=== PATIENT | male | born 1970 | race Caucasian/White ===

== ENCOUNTER 2017-02-21 10:34 | Emergency (ER) | payer BC ==
[2017-02-21 10:47] VITALS: BP 140/99
--- NOTE | 2017-02-21 10:50 | EDM.PDOC ---
ED HPI GENERAL MEDICAL PROBLEM - General Chief Complaint: Abdominal Pain Stated Complaint: ABDOMINAL PAIN Time Seen by Provider: 02/21/17 10:49 - History of Present Illness INITIAL COMMENTS - FREE TEXT/NARRATIVE: 46-year-old male presents emergency room with abdominal pain. This pain started on the of this last month nearly going on for 2 weeks. Pain is progressively been getting worse. Patient was seen in the clinic Friday this last week had lab work and x-rays done that were unrevealing. He describes the pain as a generalized abdominal pain doesn't seem to be worse any particular place. Patient said variable loose stools over the last week semi- formed no more than one daily denies constipation. His appetite and diminished no vomiting. No black or tarry stools. Patient's significant history of type 2 diabetes and he has had an appendectomy in the past. Abdominal Pain Score (Numeric/FACES): 7 - Related Data Allergies Allergy/AdvReac Type Severity Reaction Status Date / Time acetaminophen Allergy Hives Verified 05/14/16 17:23 [From Lorcet (hydrocodone)] hydrocodone bitartrate Allergy Hives Verified 02/21/17 10:47 [From Lorcet (hydrocodone)] Home Meds: Home Meds Amitriptyline [Elavil] 50 mg PO BEDTIME 08/27/14 [History] Lisinopril 2.5 mg PO DAILY 08/27/14 [History] metFORMIN [Glucophage XR] 750 mg PO BID 08/27/14 [History] rOPINIRole [Requip] 3 mg PO BEDTIME 08/27/14 [History] Propranolol [Inderal] 10 mg PO ACDINNER 08/29/15 [History] Topiramate [Topamax] 50 mg PO DAILY 05/14/16 [History] Omeprazole Magnesium [Prilosec Otc] 20 mg PO DAILY 02/21/17 [History] Sucralfate [Carafate] 1 gm PO QID 02/21/17 [History] Vortioxetine Hydrobromide [Trintellix] 10 mg PO DAILY 02/21/17 [History] Past Medical History Cardiovascular History: Reports: High Cholesterol, Hypertension Gastrointestinal History: Reports: GERD Genitourinary History: Reports: Renal Calculus Neurological History: Reports: Migraines Psychiatric History: Reports: Depression Endocrine/Metabolic History: Reports: Diabetes, Type I - Infectious Disease History Infectious Disease History: Reports: Chicken Pox - Past Surgical History Musculoskeletal Surgical History: Reports: Other (See Below) Social & Family History - Tobacco Use Smoking Status *Q: Never Smoker Second Hand Smoke Exposure: No - Alcohol Use Days Per Week of Alcohol Use: 1 Number of Drinks Per Day: 1 Total Drinks Per Week: 1 - Recreational Drug Use Recreational Drug Use: No ED ROS GENERAL - Review of Systems Review Of Systems: See Below Constitutional: Reports: No Symptoms. Denies: Fever, Chills Respiratory: Reports: No Symptoms Cardiovascular: Reports: No Symptoms Endocrine: Reports: No Symptoms GI/Abdominal: Reports: Abdominal Pain, Nausea. Denies: Constipation, Diarrhea, Vomiting : Reports: No Symptoms Neurological: Reports: No Symptoms ED EXAM, GI/ABD - Physical Exam Exam: See Below Exam Limited By: No Limitations General Appearance: Alert, No Apparent Distress Neck: Normal Inspection. No: Lymphadenopathy (L), Lymphadenopathy (R) Respiratory/Chest: No Respiratory Distress, Lungs Clear, Normal Breath Sounds Cardiovascular: Regular Rate, Rhythm, No Edema, No Murmur GI/Abdominal: Normal Bowel Sounds, Soft, Other (He has mild diffuse tenderness throughout the abdomen seems to be worse in the epigastric and to a lesser degree in the right upper quadrant no rebound or guarding.) Back Exam: Normal Inspection. No: CVA Tenderness (L), CVA Tenderness (R) Extremities: Normal Inspection, No Pedal Edema Neurological: Alert, Oriented Course - Vital Signs Last Recorded V/S: Last Vital Signs Temp 36.9 C 02/21/17 10:43 Pulse 62 02/21/17 10:43 Resp 20 02/21/17 10:43 BP 140/99 H 02/21/17 10:43 Pulse Ox 99 02/21/17 10:43 - Orders/Labs/Meds Orders: Active Orders 24 hr Category Date Time Status Abdomen 2V AP Flat Upright [CR] Stat Exams 02/21/17 11:53 Taken Labs: Laboratory Tests 02/21/17 02/21/17 Range/Units 10:50 10:50 WBC 7.34 (4.23-9.07) K/mm3 RBC 4.77 (4.63-6.08) M/mm3 Hgb 15.2 (13.7-17.5) gm/L Hct 43.6 (40.1-51.0) % MCV 91.4 (79.0-92.2) fl MCH 31.9 (25.7-32.2) pg MCHC 34.9 (32.2-35.5) g/dl RDW Std Deviation 40.7 (35.1-43.9) fL Plt Count 379 H (163-337) K/mm3 MPV 9.8 (9.4-12.3) fl Neutrophils % (Manual) 40 (40-60) % Band Neutrophils % 0 (0-10) % Lymphocytes % (Manual) 54 H (20-40) % Atypical Lymphs % 0 % Monocytes % (Manual) 4 (2-10) % Eosinophils % (Manual) 2 (0.8-7.0) % Basophils % (Manual) 0 L (0.2-1.2) Platelet Estimate Adequate RBC Morph Comment Normal Sodium 139 (136-145) mEq/L Potassium 4.0 (3.5-5.1) mEq/L Chloride 104 (98-107) mEq/L Carbon Dioxide 23 (21-32) mEq/L Anion Gap 16.0 H (5-15) BUN 14 (7-18) mg/dL Creatinine 1.2 (0.7-1.3) mg/dL Est Cr Clr Drug Dosing TNP Estimated GFR (MDRD) > 60 (>60) mL/min BUN/Creatinine Ratio 11.7 L (14-18) Glucose 154 H (74-106) mg/dL Calcium 9.2 (8.5-10.1) mg/dL Total Bilirubin 0.6 (0.2-1.0) mg/dL AST 13 L (15-37) U/L ALT 17 (16-63) U/L Alkaline Phosphatase 70 (46-116) U/L Total Protein 7.0 (6.4-8.2) g/dl Albumin 4.0 (3.4-5.0) g/dl Globulin 3.0 gm/dL Albumin/Globulin Ratio 1.3 (1-2) Lipase 149 (73-393) U/L Meds: Medications Discontinued Medications Generic Name Dose Route Start Last Admin Trade Name Freq PRN Reason Stop Dose Admin Al Hydroxide/Mg Hydroxide 30 0 ml 02/21/17 12:12 02/21/17 12:20 ml/ Lidocaine HCl 15 ml PO 02/21/17 12:13 45 ml ONETIME ONE Administration Sucralfate 1 gm 02/21/17 13:07 02/21/17 13:16 Carafate PO 02/21/17 13:08 1 gm ONETIME ONE Administration - Re-Assessments/Exams Free Text/Narrative Re-Assessment/Exam: 02/21/17 12:40 Reviewed his labs and x-ray done in the clinic earlier this week they were unrevealing new labs ordered will check a two-view abdomen. Recheck his abdomen exam this is unchanged we'll try a GI cocktail. 02/21/17 13:06 Patient had some improvement with the GI cocktail not complete resolution of his discomfort. 02/21/17 14:04 Further improvement with Carafate as it turns out his eye she started on omeprazole 20 mg twice a day for 5 days then once daily and Carafate however he' s not been taking the Carafate more than twice daily. With improvement we have with the GI cocktail the Carafate I am going to continue this current therapy however I discussed with the patient and the that if he is not getting improvement by early next week a gallbladder ultrasound should be pursued. Departure - Departure Time of Disposition: 14:19 Disposition: Home, Self-Care 01 Clinical Impression: Dyspepsia - Discharge Information Forms: ED Department Discharge Additional Instructions: Return to emergency room if any questions or problems. Followup in the clinic on Friday. If this is not improving pursue a gallbladder ultrasound. Continue the omeprazole twice daily and the Carafate 4 times daily just before breakfast lunch and supper and at bedtime take your other medications at least one hour before the Carafate and at least 2 hours after Carafate. - My Orders Last 24 Hours: My Active Orders 02/21/17 11:53 Abdomen 2V AP Flat Upright [CR] Stat - Assessment/Plan Last 24 Hours: My Active Orders 02/21/17 11:53 Abdomen 2V AP Flat Upright [CR] Stat
[2017-02-21] MEDS ORDERED: Alum Hydrox/Mag Hydrox/Simeth 30 ML, Lidocaine 2% 15 ML PO ONE ×2 (12:12)
[2017-02-21] MEDS ORDERED: Sucralfate Suspension 1 GM/10 ML Cup PO ONE (13:07)
--- NOTE | 2017-02-24 12:04 | CR ---
Abdomen: Supine and upright views of the abdomen were obtained. Comparison: No previous study. Bowel gas pattern is normal. No abnormal calcifications or soft tissue abnormality is seen. Bony structures are unremarkable. Impression: 1. No abnormality is seen on two-view abdominal x-ray. Diagnostic code #1
== END 2017-02-21 14:34 | disposition home or self-care (01) ==
LOC: JD.ED 10:34
DX: R10.13 Epigastric pain (principal); I10 Essential (primary) hypertension; E78.00 Pure hypercholesterolemia, unspecified; K21.9 Gastro-esophageal reflux disease without esophagitis; G43.909 Migraine, unspecified, not intractable, without status migrainosus; F32.9 Major depressive disorder, single episode, unspecified; E10.9 Type 1 diabetes mellitus without complications; Z79.84 Long term (current) use of oral hypoglycemic drugs; Z79.899 Other long term (current) drug therapy; Z88.6 Allergy status to analgesic agent; Z88.5 Allergy status to narcotic agent
CPT/HCPCS: 36415; 74020; 80053; 83690; 85025; 99284; A9270; 99283

== ENCOUNTER 2018-03-03 10:36 | Emergency (ER) | payer BC ==
[2018-03-03] MEDS ORDERED: Sodium Chloride 0.9% 10 ML Syringe FLUSH PRN (11:15)
[2018-03-03] MEDS ORDERED: LORazepam 2 MG/ML SDV IVPUSH ONE (11:15)
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
[2018-03-03 13:16] VITALS: BP 103/63
== END 2018-03-03 13:00 | disposition home or self-care (01) ==
LOC: JD.ED 10:36
DX: F44.5 Conversion disorder with seizures or convulsions (principal); F32.9 Major depressive disorder, single episode, unspecified; E78.00 Pure hypercholesterolemia, unspecified; I10 Essential (primary) hypertension; K21.9 Gastro-esophageal reflux disease without esophagitis; E10.9 Type 1 diabetes mellitus without complications; Z95.5 Presence of coronary angioplasty implant and graft; Z79.82 Long term (current) use of aspirin; Z79.899 Other long term (current) drug therapy; Z87.891 Personal history of nicotine dependence; Z87.442 Personal history of urinary calculi; Z88.6 Allergy status to analgesic agent; Z79.84 Long term (current) use of oral hypoglycemic drugs
CPT/HCPCS: 36415; 80053; 80306; 81001; 82962; 84443; 85007; 85027; 96374; 99285; G0480; J2060; J7050; 99284

== ENCOUNTER 2019-09-30 21:31 | Emergency (ER) | payer OTHER ==
[2019-09-30 21:40] VITALS: BP 161/110; PULSE 83
[2019-09-30] MEDS ORDERED: Sodium Chloride 0.9% 10 ML Syringe FLUSH PRN (21:54)
[2019-09-30] MEDS ORDERED: diphenhydrAMINE 50 MG/ML SDV IVPUSH ONE (21:54)
[2019-09-30] MEDS ORDERED: Metoclopramide 10 MG/2 ML SDV IVPUSH ONE (21:54)
[2019-09-30] MEDS ORDERED: Ketorolac 30 MG/ML SDV IVPUSH ONE (21:54)
[2019-09-30] MEDS ORDERED: Sodium Chloride 0.9% 1,000 ML IV SCH (22:00)
--- NOTE | 2019-09-30 22:11 | EDM.PDOC ---
<Savanah Singh Navya - Last Filed: 09/30/19 22:49> ED HPI GENERAL MEDICAL PROBLEM - General Chief Complaint: Headache Stated Complaint: MIGRAINE Time Seen by Provider: 09/30/19 21:53 Source of Information: Reports: Patient, Family (), RN Notes Reviewed History Limitations: Reports: No Limitations - History of Present Illness INITIAL COMMENTS - FREE TEXT/NARRATIVE: Is a 49-year-old male who presents to the ED for the evaluation of a headache, he states he has a history of headaches, and this 1 has been present for the past 3 days, he has been trying Tylenol ibuprofen at home, but this not provided much relief. Patient notes that the migraine started like his typical migraine, but now he states that his head pain is all over. He feels like his head wants to blow up. He would rate his pain at a 10 out of 10, he states that he was having some nausea and vomiting with this, he did have 3 episodes of vomitus. He was seeing spots or stars as well, he is not having any sort of blurred vision or double vision. Patient did not get a flu shot this year, however he states he has not had a fever or chills at home. Patient has not had any sort of recent neurology visit, the notes that he has been on Imitrex, Maxalt, Lortab, Fioricet, for headache prophylaxis however all of these have provided adverse side effects. The also notes that the patient recently quit tobacco chew, and he is on a nicotine patch. Head Pain Score (Numeric/FACES): 10 - Related Data Allergies Allergy/AdvReac Type Severity Reaction Status Date / Time acetaminophen Allergy Hives Verified 03/03/18 10:42 [From Lorcet (hydrocodone)] diazepam [From Valium] Allergy Shaking Verified 03/03/18 10:42 hydrocodone bitartrate Allergy Hives Verified 03/03/18 10:42 [From Lorcet (hydrocodone)] Home Meds: Home Meds Amitriptyline [Elavil] 50 mg PO BEDTIME 08/27/14 [History] Lisinopril 5 mg PO DAILY 08/27/14 [History] rOPINIRole [Requip] 3 mg PO BEDTIME 08/27/14 [History] Propranolol [Inderal] 80 mg PO ACDINNER 08/29/15 [History] Topiramate [Topamax] 50 mg PO BID 05/14/16 [History] Aspirin 81 mg PO DAILY 03/03/18 [History] Cholecalciferol (Vitamin D3) [Vitamin D3] 1,000 unit PO DAILY 03/03/18 [History] Cyanocobalamin (Vitamin B12) [Vitamin B12] 1,000 mcg PO DAILY 03/03/18 [History] LORazepam [Ativan] 0.5 mg PO TID PRN #9 tab 03/03/18 [Rx] atorvaSTATin [Lipitor] 10 mg PO BEDTIME 03/03/18 [History] metFORMIN [Glucophage] 850 mg PO BIDMEALS 03/03/18 [History] Ketorolac [Toradol] 10 mg PO Q6H PRN #6 tab 09/30/19 [Rx] Metoclopramide HCl [Reglan] 10 mg PO Q6H PRN #6 tablet 09/30/19 [Rx] PARoxetine HCl [Paxil] 20 mg PO DAILY 09/30/19 [History] Past Medical History HEENT History: Reports: Impaired Vision Cardiovascular History: Reports: High Cholesterol, Hypertension Gastrointestinal History: Reports: GERD Genitourinary History: Reports: Renal Calculus Neurological History: Reports: Migraines Psychiatric History: Reports: Depression Endocrine/Metabolic History: Reports: Diabetes, Type I - Infectious Disease History Infectious Disease History: Reports: Chicken Pox - Past Surgical History HEENT Surgical History: Reports: Tonsillectomy Cardiovascular Surgical History: Reports: Coronary Artery Stent Musculoskeletal Surgical History: Reports: Other (See Below) Other Musculoskeletal Surgeries/Procedures:: ankle surgery Social & Family History - Family History Family Medical History: Noncontributory - Tobacco Use Smoking Status *Q: Former Smoker Used Tobacco, but Quit: Yes Month/Year Tobacco Last Used: August 2019 - Caffeine Use Caffeine Use: Reports: Soda - Recreational Drug Use Recreational Drug Use: No ED ROS GENERAL - Review of Systems Review Of Systems: See Below Constitutional: Denies: Fever, Chills HEENT: Denies: Rhinitis, Vision Change Respiratory: Denies: Shortness of Breath, Cough Cardiovascular: Denies: Chest Pain GI/Abdominal: Reports: Nausea, Vomiting. Denies: Abdominal Pain Neurological: Reports: Headache ( "all over his head"). Denies: Trouble Speaking, Weakness - Physical Exam Exam: See Below Exam Limited By: No Limitations General Appearance: Alert, WD/WN, No Apparent Distress Eye Exam: Bilateral Eye: EOMI, Normal Inspection, PERRL Ears: Normal External Exam Nose: Normal Inspection Throat/Mouth: Normal Inspection, Normal Lips, Normal Teeth, Normal Gums, Normal Oropharynx, Normal Voice, No Airway Compromise Head Exam: Atraumatic, Normocephalic Respiratory/Chest: No Respiratory Distress, Lungs Clear, Normal Breath Sounds, No Accessory Muscle Use, Chest Non-Tender Cardiovascular: Normal Peripheral Pulses, Regular Rate, Rhythm, No Murmur GI/Abdominal: Normal Bowel Sounds, Soft, Non-Tender, No Distention, No Mass Neuro Exam (Abbreviated): Alert, Oriented, Normal Cognition, No Motor/Sensory Deficits Extremities: Normal Inspection, Normal Capillary Refill Psychiatric: Normal Affect, Normal Mood Skin Exam: Warm, Dry, Intact, Normal Color, No Rash Course - Vital Signs Last Recorded V/S: Last Vital Signs Temp 36.4 C 09/30/19 21:37 Pulse 83 09/30/19 21:37 Resp 18 09/30/19 21:37 BP 161/110 H 09/30/19 21:37 Pulse Ox 94 L 09/30/19 21:37 - Orders/Labs/Meds Meds: Medications Discontinued Medications Generic Name Dose Route Start Last Admin Trade Name Cheyenne PRGodfrey Reason Stop Dose Admin Diphenhydramine HCl 25 mg 09/30/19 21:54 09/30/19 22:11 Benadryl IVPUSH 09/30/19 21:55 25 mg ONETIME ONE Administration Hydromorphone HCl 0.5 mg 09/30/19 22:46 09/30/19 22:59 Dilaudid IVPUSH 09/30/19 22:47 0.5 mg ONETIME ONE Administration Sodium Chloride 1,000 mls @ 125 mls/hr 09/30/19 22:00 09/30/19 22:09 Normal Saline IV 125 mls/hr ASDIRECTED REJI Administration Ketorolac Tromethamine 30 mg 09/30/19 21:54 09/30/19 22:11 Toradol IVPUSH 09/30/19 21:55 30 mg ONETIME ONE Administration Metoclopramide HCl 10 mg 09/30/19 21:54 09/30/19 22:11 Reglan IVPUSH 09/30/19 21:55 10 mg ONETIME ONE Administration Sodium Chloride 10 ml 09/30/19 21:54 09/30/19 22:29 Saline Flush FLUSH 10 ml ASDIRECTED PRN Administration Keep Vein Open - Re-Assessments/Exams Free Text/Narrative Re-Assessment/Exam: 09/30/19 22:14 Patient presents to the ED for the evaluation of a headache. An IV will be placed with some IV fluids, 30 mg Toradol, 25 mg Benadryl, and 10 mg Reglan to start for initial management. Patient will be reassessed about 20 minutes after he has been given medication. 09/30/19 22:49 Patient was reassessed at bedside, and states that his headache has not improved after about half hour after he is gotten the medication. I will give him 0.5 mg of Dilaudid for further pain management. Departure - Departure Time of Disposition: 22:50 Disposition: Home, Self-Care 01 Condition: Fair Clinical Impression: Headache Qualifiers: Headache type: tension-type Headache chronicity pattern: acute headache Intractability: not intractable Qualified Code(s): G44.209 - Tension-type headache, unspecified, not intractable - Discharge Information *PRESCRIPTION DRUG MONITORING PROGRAM REVIEWED*: No *COPY OF PRESCRIPTION DRUG MONITORING REPORT IN PATIENT STEVEN: No Prescriptions: Ketorolac [Toradol] 10 mg PO Q6H PRN #6 tab PRN Reason: Severe headache relief Metoclopramide HCl [Reglan] 10 mg PO Q6H PRN #6 tablet PRN Reason: Severe headache relief Instructions: Migraine Headache, [id number] Referrals: Luz Maria Vazquez PA-C [Primary Care Provider] - Forms: ED Department Discharge, ED Return to Work/School Form Additional Instructions: You were evaluated in the ED for a persistent severe headache for the last 3 days. Appears to be migraine like associated nausea vomiting.. You were given a combination of medications and IV fluid for management. This did seem to provide you pretty good relief of your symptoms. Recommend that you go home and rest in a quiet, darkened room. Try also to keep well hydrated. Please return to the ED if your symptoms should change or worsen. Written a prescription for Toradol 10 mg tablet and Reglan 10 mg tablet to be taken one of each at onset of next severe headache and may repeat in 6 hours if necessary for relief of severe headache. Trial of medication to see if it helps you could have it refilled by her primary care physician if it works. Sepsis Event Note - Evaluation Sepsis Screening Result: No Definite Risk - Focused Exam Date Exam was Performed: 09/30/19 Time Exam was Performed: 22:49 <Conner Benson - Last Filed: 10/04/19 07:17> Course - Re-Assessments/Exams Free Text/Narrative Re-Assessment/Exam: 09/30/19 23:46 she reports headache is down to a 4 out of 10 and it was a 10 out of 10. He feels that he is good enough to go home to sleep. He tolerated prescription for Toradol 10 mg tablet and Reglan 10 mg tablet 6 of each to be taken one of each at the same time at onset of next a bad headache in the hopes of bringing it under control. To excuse him from the workplace for this week as he's missed the entire week due to the severity of the bad headache. Departure - Departure Time of Disposition: 23:46 Sepsis Event Note - Focused Exam Date Exam was Performed: 10/04/19 Time Exam was Performed: 07:17
[2019-09-30] MEDS ORDERED: HYDROmorphone 0.5 MG/0.5 ML Syringe IVPUSH ONE (22:46)
== END 2019-10-01 00:04 | disposition home or self-care (01) ==
LOC: JD.ED 21:31
DX: G44.209 Tension-type headache, unspecified, not intractable (principal); I10 Essential (primary) hypertension; E78.00 Pure hypercholesterolemia, unspecified; E10.9 Type 1 diabetes mellitus without complications; F32.9 Major depressive disorder, single episode, unspecified; Z88.6 Allergy status to analgesic agent; Z88.8 Allergy status to other drugs, medicaments and biological substances; Z88.5 Allergy status to narcotic agent; Z79.84 Long term (current) use of oral hypoglycemic drugs; Z79.82 Long term (current) use of aspirin; Z79.899 Other long term (current) drug therapy; Z87.891 Personal history of nicotine dependence
CPT/HCPCS: J1170; J1200; J1885; J2765; J7030; 96361; 96374; 96375; 99283; 99284-25

== ENCOUNTER 2019-10-05 23:48 | Emergency (ER) | payer BC, OTHER ==
[2019-10-05 23:59] VITALS: BP 167/111; PULSE 82
[2019-10-06] MEDS ORDERED: Sodium Chloride 0.9% 10 ML Syringe FLUSH PRN (00:21)
[2019-10-06] MEDS ORDERED: HYDROmorphone 1 MG/ML Syringe IVPUSH ONE (00:22)
[2019-10-06] MEDS ORDERED: Sodium Chloride 0.9% 1,000 ML IV SCH (00:30)
--- NOTE | 2019-10-06 00:58 | EDM.PDOC ---
ED HPI GENERAL MEDICAL PROBLEM - General Chief Complaint: Neuro Symptoms/Deficits Stated Complaint: SHAKING/HOLDING BREATH Time Seen by Provider: 10/05/19 23:55 Source of Information: Reports: Patient, Family History Limitations: Reports: No Limitations - History of Present Illness INITIAL COMMENTS - FREE TEXT/NARRATIVE: The patient presents with his and daughter for a headache and abdominal pain this has been going on for about a week. He was seen here 5 days ago for a headache and was treated. He still has a headache and abdominal pain. He went to bed at 5pm. He then called his at 10pm and said he was having a seizure. He was shaking but not having a seizure. He has no fever or chills. He does not have a cough. He has generalized weakness. He has no chest pain or shortness of breath. He has no nausea or vomiting. He did have a conversion reaction about 2 years ago when his dog . His gave him some ativan he had from that and it may have helped some. He is confused and does not know where he is. He did have a DUI in May and has quit drinking since then. Onset: Gradual Duration: Week(s): Location: Reports: Head, Abdomen Quality: Reports: Sharp Severity: Moderate Improves with: Reports: None Worsens with: Reports: None Associated Symptoms: Reports: Headaches. 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 (see below) Other Treatments TERRITORY SALES MANAGER: 0.5mg PO ativan Abdomen Pain Score (Numeric/FACES): 8 Head Pain Score (Numeric/FACES): 8 - Related Data Allergies Allergy/AdvReac Type Severity Reaction Status Date / Time acetaminophen Allergy Hives Verified 10/06/19 00:02 [From Lorcet (hydrocodone)] diazepam [From Valium] Allergy Shaking Verified 10/06/19 00:02 hydrocodone bitartrate Allergy Hives Verified 10/06/19 00:02 [From Lorcet (hydrocodone)] Home Meds: Home Meds Amitriptyline [Elavil] 50 mg PO BEDTIME 08/27/14 [History] Lisinopril 5 mg PO DAILY 08/27/14 [History] rOPINIRole [Requip] 3 mg PO BEDTIME 08/27/14 [History] Propranolol [Inderal] 80 mg PO ACDINNER 08/29/15 [History] Topiramate [Topamax] 50 mg PO BID 05/14/16 [History] Aspirin 81 mg PO DAILY 03/03/18 [History] Cholecalciferol (Vitamin D3) [Vitamin D3] 1,000 unit PO DAILY 03/03/18 [History] Cyanocobalamin (Vitamin B12) [Vitamin B12] 1,000 mcg PO DAILY 03/03/18 [History] LORazepam [Ativan] 0.5 mg PO TID PRN #9 tab 03/03/18 [Rx] atorvaSTATin [Lipitor] 10 mg PO BEDTIME 03/03/18 [History] metFORMIN [Glucophage] 850 mg PO BIDMEALS 03/03/18 [History] Ketorolac [Toradol] 10 mg PO Q6H PRN #6 tab 09/30/19 [Rx] Metoclopramide HCl [Reglan] 10 mg PO Q6H PRN #6 tablet 09/30/19 [Rx] PARoxetine HCl [Paxil] 20 mg PO DAILY 09/30/19 [History] Omeprazole Magnesium [Prilosec Otc] 20 mg PO DAILY #15 tablet. 10/06/19 [Rx] Past Medical History HEENT History: Reports: Impaired Vision Cardiovascular History: Reports: High Cholesterol, Hypertension Gastrointestinal History: Reports: GERD Genitourinary History: Reports: Renal Calculus Neurological History: Reports: Migraines Psychiatric History: Reports: Depression Endocrine/Metabolic History: Reports: Diabetes, Type I - Infectious Disease History Infectious Disease History: Reports: Chicken Pox - Past Surgical History HEENT Surgical History: Reports: Tonsillectomy Cardiovascular Surgical History: Reports: Coronary Artery Stent Musculoskeletal Surgical History: Reports: Other (See Below) Other Musculoskeletal Surgeries/Procedures:: ankle surgery Social & Family History - Family History Family Medical History: Noncontributory - Tobacco Use Smoking Status *Q: Never Smoker Second Hand Smoke Exposure: No - Caffeine Use Caffeine Use: Reports: None - Recreational Drug Use Recreational Drug Use: No ED ROS GENERAL - Review of Systems Review Of Systems: See Below Constitutional: Reports: Weakness, Fatigue. Denies: Fever, Chills HEENT: Reports: No Symptoms Respiratory: Reports: No Symptoms Cardiovascular: Reports: No Symptoms Endocrine: Reports: No Symptoms GI/Abdominal: Reports: Abdominal Pain. Denies: Diarrhea, Nausea, Vomiting : Reports: No Symptoms Musculoskeletal: Reports: No Symptoms Neurological: Reports: Headache, Weakness (generalized) ED EXAM, NEURO - Physical Exam Exam: See Below Exam Limited By: Altered Mental Status General Appearance: No Apparent Distress, Other (sleepy) Ears: Normal External Exam Nose: Normal Inspection Head Exam: Atraumatic, Normocephalic Neck: Normal Inspection Respiratory/Chest: No Respiratory Distress, Lungs Clear, Normal Breath Sounds Cardiovascular: Regular Rate, Rhythm, No Edema, No Murmur GI/Abdominal: Soft, Non-Tender, No Organomegaly, No Mass Neurological: Other (Sleepy but he will wake up and answer questions. He is confused to where he is and who he is.) Course - Vital Signs Last Recorded V/S: Last Vital Signs Temp 97.8 F 10/05/19 23:55 Pulse 82 10/05/19 23:55 Resp 19 10/05/19 23:55 BP 167/111 H 10/05/19 23:55 Pulse Ox 94 L 10/05/19 23:55 - Orders/Labs/Meds Orders: Active Orders 24 hr Category Date Time Status Cardiac Monitoring [RC] . DIRECTED Care 10/06/19 00:21 Active Peripheral IV Care [RC] . DIRECTED Care 10/06/19 00:21 Active Head wo Cont [CT] Stat Exams 10/06/19 00:21 Taken Sodium Chloride 0.9% [Normal Saline] 1,000 ml Med 10/06/19 00:30 Active IV ASDIRECTED Sodium Chloride 0.9% [Saline Flush] Med 10/06/19 00:21 Active 10 ml FLUSH ASDIRECTED PRN Peripheral IV Insertion Adult [OM.PC] Stat Oth 10/06/19 00:21 Ordered Medication Orders Sodium Chloride (Normal Saline) 1,000 mls @ 125 mls/hr IV ASDIRECTED REJI Last Admin: 10/06/19 00:29 Dose: 125 mls/hr Sodium Chloride (Saline Flush) 10 ml FLUSH ASDIRECTED PRN PRN Reason: Keep Vein Open Last Admin: 10/06/19 00:30 Dose: 10 ml Labs: Laboratory Tests 10/06/19 10/06/19 Range/Units 00:30 00:30 WBC 7.06 (4.23-9.07) K/mm3 RBC 4.71 (4.63-6.08) M/mm3 Hgb 14.4 (13.7-17.5) gm/dl Hct 43.1 (40.1-51.0) % MCV 91.5 (79.0-92.2) fl MCH 30.6 (25.7-32.2) pg MCHC 33.4 (32.2-35.5) g/dl RDW Std Deviation 42.1 (35.1-43.9) fL Plt Count 373 H (163-337) K/mm3 MPV 9.3 L (9.4-12.3) fl Neut % (Auto) 52.4 (34.0-67.9) % Lymph % (Auto) 35.4 (21.8-53.1) % Greer % (Auto) 8.4 (5.3-12.2) % Eos % (Auto) 3.3 (0.8-7.0) Baso % (Auto) 0.4 (0.1-1.2) % Neut # (Auto) 3.70 (1.78-5.38) K/mm3 Lymph # (Auto) 2.50 (1.32-3.57) K/mm3 Greer # (Auto) 0.59 (0.30-0.82) K/mm3 Eos # (Auto) 0.23 (0.04-0.54) K/mm3 Baso # (Auto) 0.03 (0.01-0.08) K/mm3 Sodium 137 (136-145) mEq/L Potassium 3.4 L (3.5-5.1) mEq/L Chloride 101 (98-107) mEq/L Carbon Dioxide 24 (21-32) mEq/L Anion Gap 15.4 H (5-15) BUN 16 (7-18) mg/dL Creatinine 1.1 (0.7-1.3) mg/dL Est Cr Clr Drug Dosing 70.66 mL/min Estimated GFR (MDRD) > 60 (>60) mL/min BUN/Creatinine Ratio 14.5 (14-18) Glucose 134 H (74-106) mg/dL Calcium 8.8 (8.5-10.1) mg/dL Total Bilirubin 0.3 (0.2-1.0) mg/dL AST 28 (15-37) U/L ALT 69 H (16-63) U/L Alkaline Phosphatase 80 (46-116) U/L Total Protein 6.9 (6.4-8.2) g/dl Albumin 3.7 (3.4-5.0) g/dl Globulin 3.2 gm/dL Albumin/Globulin Ratio 1.2 (1-2) Meds: Medications Generic Name Dose Route Start Last Admin Trade Name Freq PRN Reason Stop Dose Admin Sodium Chloride 1,000 mls @ 125 mls/hr 10/06/19 00:30 10/06/19 00:29 Normal Saline IV 125 mls/hr ASDIRECTED REJI Administration Sodium Chloride 10 ml 10/06/19 00:21 10/06/19 00:30 Saline Flush FLUSH 10 ml ASDIRECTED PRN Administration Keep Vein Open Discontinued Medications Generic Name Dose Route Start Last Admin Trade Name Cheyenne PRN Reason Stop Dose Admin Al Hydroxide/Mg Hydroxide 30 0 ml 10/06/19 01:46 10/06/19 01:55 ml/ Lidocaine HCl 15 ml PO 10/06/19 01:47 45 ml ONETIME ONE Administration Famotidine 20 mg 10/06/19 01:46 10/06/19 01:55 Pepcid IVPUSH 10/06/19 01:47 20 mg ONETIME ONE Administration Hydromorphone HCl 1 mg 10/06/19 00:22 10/06/19 00:29 Dilaudid IVPUSH 10/06/19 00:23 1 mg ONETIME ONE Administration - Re-Assessments/Exams Free Text/Narrative Re-Assessment/Exam: 10/06/19 01:00 I ordered an IV NS, CT of his head, labs and dilaudid 1mg IV. 10/06/19 02:[address] shows nothing acute. His CBC looks good. His K was a little low at 3.4. His glucose was 134. His ALT was elevated at 69. He still had some stomach pain so I ordered a GI cocktail and pepcid 20mg IV and that did help. I feel he does have some gastritis. I will get him on some prilosec for 2 weeks. Departure - Departure Time of Disposition: 02:30 Disposition: Home, Self-Care 01 Condition: Good Clinical Impression: Headache Qualifiers: Headache type: tension-type Headache chronicity pattern: acute headache Intractability: not intractable Qualified Code(s): G44.209 - Tension-type headache, unspecified, not intractable Gastritis Qualifiers: Gastritis type: unspecified gastritis Chronicity: acute Gastritis bleeding: without bleeding Qualified Code(s): K29.00 - Acute gastritis without bleeding - Discharge Information *PRESCRIPTION DRUG MONITORING PROGRAM REVIEWED*: Not Applicable *COPY OF PRESCRIPTION DRUG MONITORING REPORT IN PATIENT STEVEN: Not Applicable Prescriptions: Omeprazole Magnesium [Prilosec Otc] 20 mg PO DAILY #15 tablet.dr Referrals: Luz Maria Vazquez PA-C [Primary Care Provider] - 1 Week Forms: ED Department Discharge Additional Instructions: Take the prilosec daily for 15 days. Try to avoid any spicy food or anything really heave for a few days. Please return if you are worse. Sepsis Event Note - Evaluation Sepsis Screening Result: No Definite Risk - Focused Exam Vital Signs: Vital Signs Temp Pulse Resp BP Pulse Ox 10/05/19 23:55 97.8 F 82 19 167/111 H 94 L Date Exam was Performed: 10/06/19 Time Exam was Performed: 02:23 - My Orders Last 24 Hours: My Active Orders 10/06/19 00:21 Cardiac Monitoring [RC] . DIRECTED Peripheral IV Care [RC] . DIRECTED Head wo Cont [CT] Stat Sodium Chloride 0.9% [Saline Flush] 10 ml FLUSH ASDIRECTED PRN Peripheral IV Insertion Adult [OM.PC] Stat 10/06/19 00:30 Sodium Chloride 0.9% [Normal Saline] 1,000 ml IV ASDIRECTED - Assessment/Plan Last 24 Hours: My Active Orders 10/06/19 00:21 Cardiac Monitoring [RC] . DIRECTED Peripheral IV Care [RC] . DIRECTED Head wo Cont [CT] Stat Sodium Chloride 0.9% [Saline Flush] 10 ml FLUSH ASDIRECTED PRN Peripheral IV Insertion Adult [OM.PC] Stat 10/06/19 00:30 Sodium Chloride 0.9% [Normal Saline] 1,000 ml IV ASDIRECTED
[2019-10-06] MEDS ORDERED: Alum Hydrox/Mag Hydrox/Simeth 30 ML, Lidocaine 2% 15 ML PO ONE ×2 (01:46)
[2019-10-06] MEDS ORDERED: Famotidine 20 MG/2 ML SDV IVPUSH ONE (01:46)
--- NOTE | 2019-10-06 07:06 | CT ---
Head CT Technique: Multiple axial sections through the brain were obtained. Intravenous contrast was not utilized. Comparison: Prior head CT study of 03/15/10. Findings: Ventricles along with basal cisterns and sulci over the convexities are mildly prominent. No abnormal parenchymal densities are seen. No evidence of intracranial hemorrhage. No midline shift or mass effect is seen. Bone window settings were reviewed. Visualized paranasal sinuses show nothing acute. Visualized mastoid sinuses show nothing acute. No acute calvarial abnormality is appreciated. Impression: 1. Nothing acute is seen on noncontrast head CT study. Diagnostic code #2 This report was dictated in [place] Standard Time I agree with preliminary report from [facility], finalized on 10/06/19, 2:28 AM Central Time
== END 2019-10-06 02:45 | disposition home or self-care (01) ==
LOC: JD.ED 23:48
DX: G44.209 Tension-type headache, unspecified, not intractable (principal); K29.00 Acute gastritis without bleeding; E78.00 Pure hypercholesterolemia, unspecified; I10 Essential (primary) hypertension; K21.9 Gastro-esophageal reflux disease without esophagitis; E10.9 Type 1 diabetes mellitus without complications; F32.9 Major depressive disorder, single episode, unspecified; G43.909 Migraine, unspecified, not intractable, without status migrainosus; Z88.6 Allergy status to analgesic agent; Z88.5 Allergy status to narcotic agent; Z88.8 Allergy status to other drugs, medicaments and biological substances; Z79.899 Other long term (current) drug therapy; Z79.82 Long term (current) use of aspirin; Z79.84 Long term (current) use of oral hypoglycemic drugs
CPT/HCPCS: 36415; 70450; 80053; 85025; 96361; 96374; 96375; 99284; A9270; J1170; J3490; J7030

== ENCOUNTER 2020-12-29 02:00 | Emergency (ER) | payer OTHER ==
[2020-12-29 02:08] VITALS: BP 121/79; PULSE 119
[2020-12-29] MEDS ORDERED: Sodium Chloride 0.9% 1,000 ML IV SCH (02:15)
[2020-12-29] MEDS ORDERED: Sodium Chloride 0.9% 10 ML Syringe FLUSH PRN (02:15)
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
[2020-12-29] MEDS ORDERED: Sodium Chloride 0.9% 1,000 ML IV ONE (03:33)
--- NOTE | 2020-12-29 08:36 | CR ---
Right hand: 3 views of the right hand were obtained. Comparison: No prior hand study is available. Fingers are held slightly in flexion. Prior amputation is noted within the distal second finger. Joint spaces are fairly well preserved. No acute fracture, dislocation or other bony abnormality is appreciated. Impression: 1. 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 2. No acute osseous abnormality is appreciated. Diagnostic code #2
--- NOTE | 2020-12-29 08:36 | CR ---
Left hand: 3 views of the left hand were obtained. Comparison: No previous left hand exam. Joint spaces are fairly well preserved. No acute fracture, dislocation or other bony abnormality is appreciated. Impression: 1. No acute osseous finding is seen on left hand exam. Diagnostic code #1
== END 2020-12-29 04:00 | disposition home or self-care (01) ==
LOC: JD.ED 02:00
DX: S60.512A Abrasion of left hand, initial encounter (principal); S60.511A Abrasion of right hand, initial encounter; F10.120 Alcohol abuse with intoxication, uncomplicated; E10.65 Type 1 diabetes mellitus with hyperglycemia; E78.00 Pure hypercholesterolemia, unspecified; I10 Essential (primary) hypertension; K21.9 Gastro-esophageal reflux disease without esophagitis; Y90.8 Blood alcohol level of 240 mg/100 ml or more; Z79.82 Long term (current) use of aspirin; Z88.6 Allergy status to analgesic agent; Z88.8 Allergy status to other drugs, medicaments and biological substances; Z88.5 Allergy status to narcotic agent; Z79.899 Other long term (current) drug therapy; W22.8XXA Striking against or struck by other objects, initial encounter
CPT/HCPCS: 36415; 73130; 80053; 80307; 82009; 82800; 82947; 83690; 83735; 83930; 85025; 99284; J7030

== ENCOUNTER 2022-12-25 07:23 | Day surgery (SDC) | payer OTHER ==
[~2022-12-25 07:23] MED LIST: Lactated Ringers 1,000 ML IV SCH; Lidocaine 1%/Sod Bicarbonate in NS 8.4% 1 ML Syringe IDERM PRN; Sodium Chloride 0.9% 10 ML Syringe FLUSH PRN; Sodium Chloride 0.9% 10 ML Syringe FLUSH SCH
[2022-12-25] MEDS ORDERED: Lidocaine 1% 4 ML ONE (08:27)
[2022-12-25] MEDS ORDERED: Propofol 200 MG/20 ML SDV ONE ×3 (08:27→09:16)
[2022-12-25 09:24] VITALS: PULSE 79
[2022-12-25 10:21] VITALS: BP 122/86
== END 2022-12-25 10:20 | disposition home or self-care (01) ==
LOC: JD.SDS 07:23
PROVIDERS: ATTEND Surgery
DX: Z12.11 Encounter for screening for malignant neoplasm of colon (principal); D12.4 Benign neoplasm of descending colon; D12.2 Benign neoplasm of ascending colon; D12.5 Benign neoplasm of sigmoid colon; K57.30 Diverticulosis of large intestine without perforation or abscess without bleeding; K64.9 Unspecified hemorrhoids; G43.909 Migraine, unspecified, not intractable, without status migrainosus; F32.A Depression, unspecified; I10 Essential (primary) hypertension; E78.5 Hyperlipidemia, unspecified; K21.9 Gastro-esophageal reflux disease without esophagitis; E10.9 Type 1 diabetes mellitus without complications; Z88.5 Allergy status to narcotic agent; Z88.8 Allergy status to other drugs, medicaments and biological substances; Z79.4 Long term (current) use of insulin; Z79.84 Long term (current) use of oral hypoglycemic drugs; Z79.899 Other long term (current) drug therapy; Z79.82 Long term (current) use of aspirin
CPT/HCPCS: 45380; 82947; J2704; J7120; 00812; J3490